=== PATIENT | male | born 1995 | race Caucasian/White ===

== ENCOUNTER 2018-11-03 14:19 | Emergency (ER) | payer OTHER, BC ==
[~2018-11-03] VITALS: Ht 185.4 cm; Wt 63.5 kg
[2018-11-03 14:20] VITALS: BP 131/79
== END 2018-11-03 14:45 | disposition home or self-care (01) ==
LOC: M.ERS 14:19
DX: Z77.098 Contact with and (suspected) exposure to other hazardous, chiefly nonmedicinal, chemicals (principal)